=== PATIENT | female | born 1985 | race Two or more races ===

== ENCOUNTER 2016-07-11 00:39 | Emergency (ER) | payer OTHER ==
[~2016-07-11] VITALS: Ht 162.6 cm; Wt 70.3 kg
--- NOTE | 2016-07-11 00:42 | ED.ADGEN ---
Adult General Chief Complaint Chief Complaint Vaginal bleeding in HPI HPI Patient is a 31 year old female who presents with vaginal bleeding . She states she is about 6-7 weeks and 3 days ago she started having some spotting and then today she started having heavy bleeding around 2 hours ago with cramps. She denies any lightheadedness dizziness nausea or vomiting. She states she's been once before and had a normal full- term delivery. She states her blood type is B+. Review of Systems Review of Systems Constitutional: Denies fever or chills [] Eyes: Denies change in visual acuity, redness, or eye pain [] HENT: Denies nasal congestion or sore throat [] Respiratory: Denies cough or shortness of breath [] Cardiovascular: No additional information not addressed in HPI [] GI: Denies abdominal pain, nausea, vomiting, bloody stools or diarrhea [] : Denies dysuria or hematuria [] Musculoskeletal: Denies back pain or joint pain [] Integument: Denies rash or skin lesions [] Neurologic: Denies headache, focal weakness or sensory changes [] Endocrine: Denies polyuria or polydipsia [] Current Medications Current Medications Current Medications Medications (Trade) Dose Ordered Sig/Gallo Start Time Stop Time Status Last Admin Dose Admin Acetaminophen/ Hydrocodone Bitart (Lortab 5/325) 2 tab 1X ONCE 07/11/16 03:45 07/11/16 03:56 DC 07/11/16 03:45 2 TAB Nitrofurantoin Macrocrystals (Macrobid) 100 mg 1X ONCE 07/11/16 03:45 07/11/16 03:56 DC 07/11/16 03:45 100 MG Allergies Allergies Allergies Coded Allergies Type Severity Reaction Last Updated Verified No Known Drug Allergies 07/11/16 No Physical Exam Physical Exam Constitutional: Well developed, well nourished, no acute distress, non-toxic appearance. [] HENT: Normocephalic, atraumatic, bilateral external ears normal, oropharynx moist, no oral exudates, nose normal. [] Eyes: PERRLA, EOMI, conjunctiva normal, no discharge. [] Neck: Normal range of motion, no tenderness, supple, no stridor. [] Cardiovascular:Heart rate regular rhythm, no murmur [] Lungs & Thorax: Bilateral breath sounds clear to auscultation [] Abdomen/pelvic: Bowel sounds normal, soft, no tenderness, no masses, no pulsatile masses. Normal external genitalia, large clots in the vault, mild discomfort but no cervical motion tenderness on exam Skin: Warm, dry, no erythema, no rash. [] Back: No tenderness, no CVA tenderness. [] Extremities: No tenderness, no cyanosis, no clubbing, ROM intact, no edema. [] Neurologic: Alert and oriented X 3, normal motor function, normal sensory function, no focal deficits noted. [] Psychologic: Affect normal, judgement normal, mood normal. [] Current Patient Data Vital Signs Vital Signs Date Time Temp Pulse Resp B/P (MAP) Pulse Ox O2 Delivery O2 Flow Rate FiO2 07/11/16 00:45 97.9 97 20 97 Room Air Lab Results Laboratory Tests Test 07/11/16 00:59 07/11/16 02:10 White Blood Count 10.4 x10^3/uL (4.0-11.0) Red Blood Count 4.71 x10^6/uL (3.50-5.40) Hemoglobin 13.8 g/dL (12.0-15.5) Hematocrit 40.9 % (36.0-47.0) Mean Corpuscular Volume 87 fL (79-100) Mean Corpuscular Hemoglobin 29 pg (25-35) Mean Corpuscular Hemoglobin Concent 34 g/dL (31-37) Red Cell Distribution Width 13.1 % (11.5-14.5) Platelet Count 268 x10^3/uL (140-400) Neutrophils (%) (Auto) 67 % (31-73) Lymphocytes (%) (Auto) 24 % (24-48) Monocytes (%) (Auto) 8 % (0-9) Eosinophils (%) (Auto) 1 % (0-3) Basophils (%) (Auto) 0 % (0-3) Neutrophils # (Auto) 7.0 x10^3uL (1.8-7.7) Lymphocytes # (Auto) 2.5 x10^3/uL (1.0-4.8) Monocytes # (Auto) 0.8 x10^3/uL (0.0-1.1) Eosinophils # (Auto) 0.1 x10^3/uL (0.0-0.7) Basophils # (Auto) 0.0 x10^3/uL (0.0-0.2) Prothrombin Time 9.7 SEC (9.4-11.4) Prothrombin Time INR 0.9 (0.9-1.1) PTT 25 SEC (23-33) Maternal Serum HCG Beta Subunit 99754 mIU/mL (0-6) H Sodium Level 139 mmol/L (136-145) Potassium Level 3.6 mmol/L (3.5-5.1) Chloride Level 104 mmol/L (98-107) Carbon Dioxide Level 26 mmol/L (21-32) Anion Gap 9 (6-14) Blood Urea Nitrogen 14 mg/dL (7-20) Creatinine 0.6 mg/dL (0.6-1.0) Estimated GFR (Cockcroft-Gault) 117.4 Glucose Level 105 mg/dL (70-99) H Calcium Level 9.0 mg/dL (8.5-10.1) Total Bilirubin 0.3 mg/dL (0.2-1.0) Direct Bilirubin 0.1 mg/dL (0.0-0.2) Aspartate Amino Transferase (AST) 12 U/L (15-37) L Alanine Aminotransferase (ALT) 22 U/L (14-59) Alkaline Phosphatase 66 U/L (46-116) Total Protein 8.1 g/dL (6.4-8.2) Albumin 4.0 g/dL (3.4-5.0) Urine Collection Type Unknown Urine Color Red Urine Clarity Cloudy Urine pH 5.0 Urine Specific Prosser >=1.030 Urine Protein 100 mg/dl (NEG-TRACE) Urine Glucose (UA) Neg mg/dL (NEG) Urine Ketones (Stick) Neg mg/dL (NEG) Urine Blood Large (NEG) Urine Nitrite Neg (NEG) Urine Bilirubin Neg (NEG) Urine Urobilinogen Dipstick 0.2 mg/dL (0.2 mg/dL) Urine Leukocyte Esterase Neg (NEG) Urine RBC Tntc /HPF (0-2) Urine WBC Occ /HPF (0-4) Urine Squamous Epithelial Cells Few /LPF Urine Bacteria Few /HPF (0-FEW) Microbiology 07/11/16 Wet Prep - Final, Complete EKG EKG [] Radiology/Procedures Radiology/Procedures [address] [id number] IMAGING REPORT Signed PATIENT: YORDAN ABDUL ACCOUNT: [id number] : 1985 LOCATION: ER AGE: 31 SEX: F EXAM STATUS: REG ER ORD. PHYSICIAN: ADAM CHING MD REASON: vag bleeding PROCEDURE: OB <14 WKS Obstetric ultrasound less than 14 weeks: Reason for examination: Heavy vaginal bleeding with cramping. . Ultrasound examination of the pelvis was performed. The uterus measures 10 x 6 x 5.4 cm in greatest dimension. The endometrium is thickened. There is no evidence of intrauterine gestation. Ectopic gestation is identified. There does appear to be some echogenic tissue possibly reflecting clot in the endocervical canal. No abnormal vascularity is seen. The right ovary measures 2.4 x 1.7 x 1.5 cm in greatest dimension and shows a small hypoechoic lesion probably representing a small corpus luteal cyst. The left ovary measures 2.5 x 1.0 x 1.0 cm in greatest dimension. There is normal vascular flow in the ovaries bilaterally. There is no evidence of free fluid. IMPRESSION: No intrauterine gestation evident. No ectopic gestation evident. Possible clot in the endocervical canal.. Probable small corpus luteum on the right ovary. Electronically signed by: Renetta Patterson MD (07/11/2016 3:23 AM) DICTATED AND SIGNED BY: RENETTA PATTERSON MD DATE: 07/11/16 0256 CC: ADAM CHING MD; PCP,NO ~ Course & Med Decision Making Course & Med Decision Making Pertinent Labs and Imaging studies reviewed. (See chart for details) On pelvic exam she had large amount of clots but do not appreciate tissue. On ultrasound does not show any gestational sac, IUP or heartbeat. She likely is had a complete miscarriage. She was able to ambulate around the department without any lightheadedness or dizziness and she states bleeding has improved. I offered her admission to the hospital however she feels well enough to go home. She is going back to hotel room to sleep for several hours and then going to try to drive back to [facility] today. I've instructed her if she feels lightheaded dizzy has a lot of bleeding to return back to ER for evaluation by [facility], if not she is to follow-up with her OB a call them today on the way home. She is being discharged with [facility] and nitrofurantoin since she 's got bacteria in her urine. She is agreeable to the plan and being discharged with her in stable condition. Final Impression Final Impression Miscarriage UTI[] Problems: Dragon Disclaimer Dragon Disclaimer This electronic medical record was generated, in whole or in part, using a voice recognition dictation system. ADAM CHING MD Jul 11, 2016 00:42
[2016-07-11 01:47] LABS: BASO % 0 % (0-3); EOS # 0.1 x10^3/uL (0.0-0.7); EOS % 1 % (0-3); HEMATOCRIT 40.9 % (36.0-47.0); HEMOGLOBIN 13.8 g/dL (12.0-15.5); LYMPH # 2.5 x10^3/uL (1.0-4.8); LYMPH % 24 % (24-48); MEAN CORPUSCULAR HEMOGLOBIN 29 pg (25-35); MEAN CORPUSCULAR HGB CONC 34 g/dL (31-37); MEAN CORPUSCULAR VOLUME 87 fL (79-100); MONO # 0.8 x10^3/uL (0.0-1.1); MONO % 8 % (0-9); NEUT % 67 % (31-73); PLATELET COUNT 268 x10^3/uL (140-400); RED BLOOD COUNT 4.71 x10^6/uL (3.50-5.40); RED CELL DISTRIBUTION WIDTH 13.1 % (11.5-14.5); WHITE BLOOD COUNT 10.4 x10^3/uL (4.0-11.0)
[2016-07-11 01:56] LABS: CREATININE 0.6 mg/dL (0.6-1.0); DIRECT BILIRUBIN 0.1 mg/dL (0.0-0.2); GFR 117.4; POTASSIUM 3.6 mmol/L (3.5-5.1); TOTAL BILIRUBIN 0.3 mg/dL (0.2-1.0); TOTAL PROTEIN 8.1 g/dL (6.4-8.2)
[2016-07-11 02:45] LABS: BILIRUBIN,URINE NEG (NEG); CLARITY,URINE CLOUDY; COLOR,URINE RED; GLUCOSE,URINE NEG (NEG); NITRITE,URINE NEG (NEG); UROBILINOGEN,URINE 0.2 mg/dL (0.2 mg/dL)
[2016-07-11 02:46] LABS: BACTERIA,URINE FEW /HPF (0-FEW); RBC,URINE TNTC /HPF (0-2); SQUAMOUS EPITHELIAL CELL,UR FEW /LPF; WBC,URINE OCC /HPF (0-4)
[2016-07-11 03:00] VITALS: BP 135/77
--- NOTE | 2016-07-11 03:26 | RAD ---
Obstetric ultrasound less than 14 weeks: Reason for examination: Heavy vaginal bleeding with cramping. . Ultrasound examination of the pelvis was performed. The uterus measures 10 x 6 x 5.4 cm in greatest dimension. The endometrium is thickened. There is no evidence of intrauterine gestation. Ectopic gestation is identified. There does appear to be some echogenic tissue possibly reflecting clot in the endocervical canal. No abnormal vascularity is seen. The right ovary measures 2.4 x 1.7 x 1.5 cm in greatest dimension and shows a small hypoechoic lesion probably representing a small corpus luteal cyst. The left ovary measures 2.5 x 1.0 x 1.0 cm in greatest dimension. There is normal vascular flow in the ovaries bilaterally. There is no evidence of free fluid. IMPRESSION: No intrauterine gestation evident. No ectopic gestation evident. Possible clot in the endocervical canal.. Probable small corpus luteum on the right ovary. Electronically signed by: Renetta Hirsch MD (07/11/2016 3:23 AM)
[2016-07-11] MEDS ORDERED: HYDR-971 PO (03:35)
[2016-07-11] MEDS ORDERED: NITR100C6 PO (03:35)
[2016-07-11] MEDS ORDERED: HYDROcodone/APAP 5/325MG 1 TAB TABLET ONE (03:37)
[2016-07-11] MEDS ORDERED: NITROFURANTOIN MONOHYD/M-CRYST 100 MG CAPSULE. PO ONE ×2 (03:38→03:45)
[2016-07-11] MEDS ORDERED: HYDROcodone/APAP 5/325MG 1 TAB TABLET PO ONE (03:45)
[2016-07-12 15:09] LABS: CHLAMYDIA PROBE Negative (Negative)
== END 2016-07-11 03:51 | disposition home or self-care (01) ==
LOC: ER 00:39
DX: O03.9 Complete or unspecified spontaneous abortion without complication (principal); N39.0 Urinary tract infection, site not specified
CPT/HCPCS: 36415; 76801; 80048; 80076; 81001; 84702; 85027; 85610; 85730; 86900; 86901; 87491; 87591; 99285; Q0111